=== PATIENT | male | born 1985 | race African-American/Black ===

== ENCOUNTER 2018-08-06 10:46 | Emergency (ER) | payer OTHER ==
[~2018-08-06] VITALS: Ht 190.5 cm; Wt 89.0 kg
[2018-08-06 13:00] VITALS: BP 131/60
== END 2018-08-06 13:00 | disposition home or self-care (01) ==
LOC: ER 10:46
DX: S70.02XA Contusion of left hip, initial encounter (principal); F17.200 Nicotine dependence, unspecified, uncomplicated; V43.52XA Car driver injured in collision with other type car in traffic accident, initial encounter; Y93.89 Activity, other specified; Y92.488 Other paved roadways as the place of occurrence of the external cause
CPT/HCPCS: 73502; 99283